=== PATIENT | male | born 1990 | race Caucasian/White ===

== ENCOUNTER 2017-10-15 10:17 | Emergency (ER) | payer MEDICAID, OTHER ==
[~2017-10-15] VITALS: Ht 177.8 cm; Wt 84.0 kg
[2017-10-15 10:38] VITALS: BP 131/109
[2017-10-15] MEDS ORDERED: HYDR-565 PO (11:27)
== END 2017-10-15 12:00 | disposition home or self-care (01) ==
LOC: ER 10:18
DX: S92.901A Unspecified fracture of right foot, initial encounter for closed fracture (principal); F17.200 Nicotine dependence, unspecified, uncomplicated; F12.10 Cannabis abuse, uncomplicated; W52.XXXA Crushed, pushed or stepped on by crowd or human stampede, initial encounter; Y93.89 Activity, other specified; Y92.89 Other specified places as the place of occurrence of the external cause; Y99.8 Other external cause status
CPT/HCPCS: 29515; 73630; 99284; A6449

== ENCOUNTER 2017-10-22 13:10 | Outpatient (CLI) | payer MEDICAID, OTHER ==
[~2017-10-22 13:10] MED LIST: HYDR-565 PO
== END 2017-10-22 13:45 | disposition home or self-care (01) ==
LOC: ORTHO 13:10
PROVIDERS: ATTEND Nurse Practitioner Family
DX: S92.354A Nondisplaced fracture of fifth metatarsal bone, right foot, initial encounter for closed fracture (principal); W18.43XA Slipping, tripping and stumbling without falling due to stepping from one level to another, initial encounter; Y93.89 Activity, other specified; Y92.028 Other place in mobile home as the place of occurrence of the external cause

== ENCOUNTER 2017-10-29 08:53 | Emergency (ER) | payer MEDICAID, OTHER ==
[~2017-10-29] VITALS: Ht 177.8 cm; Wt 85.0 kg
[2017-10-29] MEDS ORDERED: Cipro HC otic suspension 10ML bottle LEFT EAR SCH (09:10)
[2017-10-29 09:50] VITALS: BP 120/89
== END 2017-10-29 09:52 | disposition home or self-care (01) ==
LOC: ER 08:54
DX: H60.92 Unspecified otitis externa, left ear (principal); F17.200 Nicotine dependence, unspecified, uncomplicated
CPT/HCPCS: 99283

== ENCOUNTER 2017-11-12 13:59 | Outpatient (CLI) | payer MEDICAID, OTHER ==
[2017-11-12 14:08] VITALS: BP 128/78
== END 2017-11-12 14:43 | disposition home or self-care (01) ==
LOC: ORTHO 13:59
PROVIDERS: ATTEND Nurse Practitioner Family
DX: S92.354G Nondisplaced fracture of fifth metatarsal bone, right foot, subsequent encounter for fracture with delayed healing (principal); F17.210 Nicotine dependence, cigarettes, uncomplicated; F12.90 Cannabis use, unspecified, uncomplicated; Z91.19 Patient's noncompliance with other medical treatment and regimen; X58.XXXD Exposure to other specified factors, subsequent encounter
CPT/HCPCS: 73630; 99213

== ENCOUNTER 2023-05-05 15:41 | Emergency (ER) | payer MEDICAID, OTHER ==
[~2023-05-05] VITALS: Ht 304.8 cm; Wt 81.8 kg
[2023-05-05 15:43] VITALS: BP 143/93; PULSE 78; RESP 20; TEMP 97; O2SAT 98
[2023-05-05] MEDS ORDERED: ondansetron/PF 4mg/2ml inj IM ONE (17:30)
[2023-05-05] MEDS ORDERED: ketorolac trometh inj. 60 MG/2 ML VIAL IM ONE (17:30)
== END 2023-05-05 18:50 | disposition home or self-care (01) ==
LOC: ER 15:41
DX: R51.9 Headache, unspecified (principal); F12.10 Cannabis abuse, uncomplicated
CPT/HCPCS: 96372; 99284; J1885; J2405

== ENCOUNTER 2024-06-07 09:35 | Emergency (ER) | payer MEDICAID ==
[~2024-06-07] VITALS: Ht 177.8 cm; Wt 88.2 kg
[2024-06-07 09:36] VITALS: BP 156/73; PULSE 116; O2SAT 98
[2024-06-07] MEDS ORDERED: CYCL-394 PO (10:15)
[2024-06-07] MEDS ORDERED: LIDO700A32 TOP (10:15)
[2024-06-07] MEDS ORDERED: NAPR-56 PO (10:15)
[2024-06-07 10:29] VITALS: RESP 16
[2024-06-07] MEDS: LIDOcaine 5% patch TP ONE (10:29)
[2024-06-07] MEDS: ketorolac trometh 15mg/ml vial 15 MG/ML ML IM ONE (10:29)
[2024-06-07 10:35] VITALS: TEMP 98
== END 2024-06-07 10:37 | disposition home or self-care (01) ==
LOC: ER 09:36
DX: M54.50 Low back pain, unspecified (principal); G89.29 Other chronic pain; F12.90 Cannabis use, unspecified, uncomplicated
CPT/HCPCS: 96372; 99283; J1885